=== PATIENT | female | born 1970 | race Caucasian/White ===

== ENCOUNTER 2023-10-08 19:58 | Inpatient (IN) ==
[2023-10-08 21:16] LABS: Albumin Globulin Ratio 0.9 (0.9-2); Albumin Level 3.7 gm/dl (3.4-5.0); BUN Creatinine Ratio 8.8 (10-20); Bilirubin,Total 0.5 mg/dl (0.2-1.0); Calcium 9.7 mg/dl (8.6-10.3); Creatinine Clr Calc Pharmacy 150.4 ml/min; Est GFR (African American) 122.7 ml/min; Est GFR (Non-African American) 105.8 ml/min; Globulin 3.9 gm/dl (2.5-4.0); Magnesium 1.7 mg/dl (1.7-2.4); Potassium 3.8 mmol/L (3.5-5.1); Total Protein 7.6 gm/dl (6.0-8.3)
[2023-10-08 21:19] LABS: Basophils # (auto) 0.07 K/uL (0.00-0.20); Basophils % (auto) 0.6 %; Eosinophils # (auto) 0.49 K/uL (0.00-0.50); Eosinophils % (auto) 4.3 %; Hematocrit (blood only) 43.1 % (37.0-47.0); Hemoglobin 14.3 g/dl (12.0-16.0); Immature Granulocytes % (auto) 0.9 %; Lymphocytes # (auto) 1.88 K/uL (1.20-3.40); Lymphocytes % (auto) 16.6 %; Mean Corpuscular Hemoglobin 28.9 pg (25.0-34.0); Mean Corpuscular Hgb Conc 33.2 g/dL (32.0-36.0); Mean Corpuscular Volume 87.1 fL (80.0-100.0); Mean Platelet Volume 10.6 fL (9.4-12.4); Monocytes # (auto) 0.87 K/uL (0.11-0.59); Monocytes % (auto) 7.7 %; Neutrophils # (auto) 7.92 K/uL (1.40-6.50); Neutrophils % (auto) 69.9 %; Platelet Count 209 K/uL (130-400); RDW Coefficient of Variation 12.8 % (11.5-14.5); RDW Standard Deviation 40.3 fL (36.4-46.3); Red Blood Count 4.95 M/uL (4.20-5.40); White Blood Count 11.33 K/ul (4.8-10.8)
[2023-10-08 21:21] LABS: INR 1.1 (0.9-1.1); Partial Thromboplastin Ratio 1.1; Partial Thromboplastin Time 29 Seconds (21-31); Prothrombin Time 12.1 Seconds (9.0-12.0)
[2023-10-08 21:29] LABS: Troponin I High Sensitivity 4.4 pg/ml (0-14)
--- NOTE | 2023-10-08 23:09 | Emergency Department Note ---
Impression & Plan Cellulitis and abscess of face, Chills, Body aches ED Provider Note CHIEF COMPLAINT: Abscess in the right side of the face HISTORY OF PRESENT ILLNESS: This 52-year-old female patient presents to the emergency department via private vehicle for evaluation of abscess in the right side of the face. The patient states that she noticed abscess 2 days ago. She states it has rapidly progressed and larger and more painful. She is now having pain extending behind her ear and down into her neck. The patient reports subjective fever and chills. She has had nausea and vomiting as well as body aches. The patient does report a history of abscesses on her face and head, but often they resolve on their own. Patient states she has been off of her diabetes medication for about 6 weeks because her doctor left and she did not want to follow-up with the other doctors in the office. She did not receive any refills of her prescriptions. She has not been checking her blood sugar. Patient states the wound on the face has been draining some purulent discharge. REVIEW OF SYSTEMS: A 10 system review of systems was performed with positives and pertinent negatives listed in the history of present illness. All other systems were reviewed and are negative. ALLERGIES: NKDA PHYSICAL EXAM: VITALS: Vitals are noted on the nurse's note and reviewed by myself. Vital signs stable. GENERAL: This is a 52 year old female, in no acute distress, nondiaphoretic, well-developed well-nourished. SKIN: The skin was without rashes, erythema, edema, or bruising. There is no tenting of the skin. Capillary refill less than 2 seconds. HEAD: Normocephalic atraumatic. Large abscess on the right side of the face overlying the right episcopalian lateral to the right eye. There is erythema that extends to the forehead as well as down into the cheek. EARS: External auditory canals clear, tympanic membranes pearly hurd without erythema or effusion bilaterally. No hemotympanum. Negative kern sign EYES: Pupils equal round and reactive to light and accommodation. Conjunctivae without injection, sclerae without icterus. Extraocular movements intact. NOSE: Patent, turbinates without inflammation or discharge. No sinus tenderness. MOUTH: Mucous membranes moist. Tonsils are not enlarged. Pharynx without erythema or exudate. Uvula midline. Airway patent. Tongue does not deviate. NECK: Supple without nuchal rigidity. No lymphadenopathy. Cervical spine is nontender. No JVD. HEART: Regular rate and rhythm without murmurs gallops or rubs. LUNGS: Clear to auscultation bilaterally without wheezes, rales or rhonchi. No retractions or accessory muscle use. MUSCULOSKELETAL: No muscle atrophy, erythema, or edema noted. Full range of motion without joint tenderness in all extremities. No tenderness to palpation. Normal gait. Strength 5/5 throughout. NEURO: Patient was alert and oriented to person place and time. No focal neurological deficits. An order was placed for continuous alarm security or surveillance monitor. The monitor showed a normal sinus rhythm at a ventricular rate of 96 bpm, per my interpretation. EKG was reviewed by myself and found to be normal sinus rhythm at a rate of 92 beats per minute and per my interpretation reveals no ST elevation or depression. No T wave version. No prior EKG available for comparison. Imaging as interpreted by myself and the radiologist revealed a [id number] abscess underlying the dermis of the right occipital scalp as well as marked fluid and edema of the subcutaneous fat with thickening of the dermis of the anterior right periauricular soft tissues without definitive evidence of organized fluid collection, a phlegmon is suspected, with radiologist interpretation as above. I agree with the radiologist's findings as based upon my independent interpretation. EMERGENCY DEPARTMENT COURSE: The patient was seen and evaluated as above. The patient presents to the emergency department for right-sided facial abscess. Patient reports increasing pain, subjective fever and chills. She has also had body aches. She has been off of all diabetes medications for almost 2 months, as her PCP left the practice and she has not followed back up. IV access was obtained, labs were drawn. There was a mild leukocytosis of 11.33. No anemia or thrombocytopenia. Coags normal. Renal, hepatic function and electrolytes without significant abnormality. Blood glucose is elevated at 328. Troponin 4.4. Procalcitonin 0.05. Lactic acid 1.5. Patient was hydrated with IV fluids and medicated with morphine, Zofran, and Unasyn. CT imaging was completed and concerning for a large abscess in the right occipital scalp as well as fluid and edema of the subcutaneous fat with thickening of the dermis of the anterior right periauricular soft tissues without definitive evidence of an organized fluid collection. Phlegmon is suspected. Lymph nodes of the neck are prominent in number but not size and are likely reactive. I discussed findings with patient at bedside. I am concerned for facial cellulitis and extensive/large facial abscess with phlegmon which I feel would be more amenable to I&D by a specialist. Recommended admission for IV antibiotics, diabetes control, and maxillofacial surgery consultation. The patient was agreeable. I discussed case with Dr[facility] Capone[facility]. He did agree to see and evaluate the patient for admission. Please see his dictation regarding ongoing management care of this patient. I did consult with Dr. Lofton at the request of Dr. Capone regarding his concern that he may or may not address the facial abscess. Dr. Lofton notes that he is happy to consult on this patient and will likely need to take her to the OR later in the week. He requested she be admitted by the medicine service and started on IV antibiotics. He notes he will see her later in the day today and asked that she remain n.p.o. until his consultation. Dr. Capone was updated on this consultation. While in the department, I personally reevaluated the patient several times and each time the patient was found to be resting comfortably. The patient was educated upon management, educated upon todays findings/results, educated upon importance of follow up from today's visit, educated upon symptoms in which to return, had questions answered prior to discharge, verbalized understanding, and was discharged home in good condition. Case was discussed with the attending physician. I attest that I have personally reviewed the patient medication list. I attest that I have reviewed the patient's blood pressure and it was found to be normal GCS: 15 In the evaluation and treatment of this patient the following differential diagnoses were entertained: cellulitis, abscess, MRSA infection, DVT, necrotizing fasciitis, dermatitis, drug eruption, allergic reaction, as well as other pathologies. The chart was completed utilizing [employer] Speech voice recognition software. Grammatical errors, random word insertions, pronoun errors, and incomplete sentences are an occasional consequence of this system due to software limitations, ambient noise, and hardware issues. Any formal questions or concerns about the content, text, or information contained within the body of this dictation should be directly addressed to the provider for clarification. Past Med/Surg History Problem List (Updated 10/09/23 @ 01:54 by Simran Escobar PA-C) Body aches (Acute) Chills (Acute) Cellulitis and abscess of face (Acute) Medical History No pertinent past medical history Social History Smoking Status: Former smoker Preferred Language: Tamazight Allergies Allergies Allergy/AdvReac Type Severity Reaction Status Date / Time meperidine [From Demerol] Allergy Severe SHORT OF Verified 10/08/23 23:27 BREATH sulfamethoxazole Allergy Severe SHORT OF Verified 10/08/23 23:27 [From Bactrim] BREATH/HIVES trimethoprim [From Bactrim] Allergy Severe SHORT OF Verified 10/08/23 23:27 BREATH/HIVES Home Meds Home Medications Medication Instructions Recorded Confirmed acetaminophen 500 mg tablet 1,000 mg PO Q6H PRN Pain 10/08/23 10/08/23 (Tylenol Extra Strength) naproxen sodium 220 mg tablet 440 mg PO DIRECTED PRN Pain 10/08/23 10/08/23 (Aleve) Results & Data (ED) Vital Signs Vital Signs - 24 hr 10/08/23 20:06 10/08/23 22:04 10/08/23 22:04 Temperature 36.7 C Temperature Source Oral Pulse Rate 96 H Pulse Rate [Finger] 96 H Pulse Rhythm Regular Pulse Strength Normal Respiratory Rate 20 20 Respiratory Effort / Characteristics Non-Labored Spontaneous Respiratory Depth Normal Respiratory Pattern Regular Blood Pressure 174/104 H Blood Pressure [Left Arm] 116/76 Blood Pressure Mean 127 Blood Pressure Mean [Left Arm] 89 Blood Pressure Position Sitting Pulse Oximetry 96 95 96 Oxygen Delivery Method Room Air Room Air Room Air Sepsis Recent Fever Within 48 Hours Yes Sepsis New/Unexplained Change in Mental Status N/A Sepsis Action Taken by Nursing No Action Required 10/08/23 23:57 10/09/23 01:24 Temperature 36.7 C Temperature Source Oral Pulse Rate Pulse Rate [Finger] 93 H 89 Pulse Rhythm Pulse Strength Respiratory Rate 20 20 Respiratory Effort / Characteristics Respiratory Depth Respiratory Pattern Blood Pressure Blood Pressure [Left Arm] Blood Pressure Mean Blood Pressure Mean [Left Arm] Blood Pressure Position Pulse Oximetry 95 94 Oxygen Delivery Method Room Air Room Air Sepsis Recent Fever Within 48 Hours Sepsis New/Unexplained Change in Mental Status Sepsis Action Taken by Nursing Laboratory Data 10/08/23 20:37 10/08/23 20:37 Lab Results 10/08/23 Range/Units 20:37 WBC 11.33 H (4.8-10.8) K/ul RBC 4.95 (4.20-5.40) M/uL Hgb 14.3 (12.0-16.0) g/dl Hct 43.1 (37.0-47.0) % MCV 87.1 (80.0-100.0) fL MCH 28.9 (25.0-34.0) pg MCHC 33.2 (32.0-36.0) g/dL RDW Std Deviation 40.3 (36.4-46.3) fL RDW Coeff of Faustino 12.8 (11.5-14.5) % Plt Count 209 (130-400) K/uL MPV 10.6 (9.4-12.4) fL Immature Gran % (Auto) 0.9 % Neut % (Auto) 69.9 % Lymph % (Auto) 16.6 % [place] % (Auto) 7.7 % Eos % (Auto) 4.3 % Baso % (Auto) 0.6 % Neut # (Auto) 7.92 H (1.40-6.50) K/uL Lymph # (Auto) 1.88 (1.20-3.40) K/uL [place] # (Auto) 0.87 H (0.11-0.59) K/uL Eos # (Auto) 0.49 (0.00-0.50) K/uL Baso # (Auto) 0.07 (0.00-0.20) K/uL Immature Gran # (Auto) 0.10 (0.01-0.20) K/uL PT 12.1 H (9.0-12.0) Seconds INR 1.1 (0.9-1.1) APTT 29 (21-31) Seconds PTT Ratio 1.1 Sodium 135 L (136-145) mmol/L Potassium 3.8 (3.5-5.1) mmol/L Chloride 102 (98-107) mmol/L Carbon Dioxide 27 (21-32) mmol/L Anion Gap 6 (3-11) BUN 5 L (6-23) mg/dl Creatinine 0.57 L (0.6-1.2) mg/dl Est Cr Clr Drug Dosing 150.4 ml/min Est GFR ( Amer) 122.7 ml/min Est GFR (Non-Af Amer) 105.8 ml/min BUN/Creatinine Ratio 8.8 L (10-20) Glucose 328 H* (70-99(Fasting)) mg/dl Lactate 1.5 (0.4-2.0) mmol/L Calcium 9.7 (8.6-10.3) mg/dl Magnesium 1.7 (1.7-2.4) mg/dl Total Bilirubin 0.5 (0.2-1.0) mg/dl AST 13 (13-39) U/L ALT 15 (7-52) U/L Alkaline Phosphatase 113 H (34-104) U/L Troponin I High Sens 4.4 (0-14) pg/ml Total Protein 7.6 (6.0-8.3) gm/dl Albumin 3.7 (3.4-5.0) gm/dl Globulin 3.9 (2.5-4.0) gm/dl Albumin/Globulin Ratio 0.9 (0.9-2) Procalcitonin 0.05 (0-0.5) ng/ml Administered Medications Discontinued Medications Sodium Chloride (Nss) 1,000 mls @ 999 mls/hr IV .Q1H1M ONE Stop: 10/09/23 00:01 Last Infusion: 10/09/23 00:12 Dose: Infused Documented By: Admin: 10/08/23 23:54 Dose: 999 mls/hr Documented By: DARIN Ampicillin Sodium/Sulbactam Sodium 3,000 mg/ Sodium Chloride 100 mls @ 200 mls/hr IV NOW STA Stop: 10/09/23 00:31 Last Infusion: 10/09/23 01:44 Dose: Infused Documented By: Admin: 10/09/23 01:23 Dose: 200 mls/hr Documented By: DARIN Ioversol (Optiray 320 100ml) 94 ml IV ONCE ONE Stop: 10/08/23 23:49 Last Admin: 10/08/23 23:48 Dose: 94 ml Documented By: GIDEON Morphine Sulfate (Morphine Sulfate 4 Mg/Ml 1 Ml Carp\Vial) 4 mg IV NOW STA Stop: 10/08/23 23:02 Last Admin: 10/08/23 23:54 Dose: 4 mg Documented By: DARIN Ondansetron HCl (Ondansetron Inj 2 Mg/Ml 2 Ml Vial) 4 mg IV NOW STA Stop: 10/08/23 23:02 Last Admin: 10/08/23 23:54 Dose: 4 mg Documented By: DARIN Imaging Data Radiologist's Impression: Soft Tissue Neck CT 10/08/23 22:58 Exam(s): CT NECK With Contrast IV Amt: 94 ML OPTIRAY 320 EXAM: CT Neck With Intravenous Contrast CLINICAL HISTORY: Abscess right side of face, Pain to neck. TECHNIQUE: Axial computed tomography images of the neck with intravenous contrast. CTDI is 22.4 mGy and DLP is 697 mGy-cm. Automated exposure control was utilized for the study. A dose lowering technique was utilized adhering to the principles of ALARA. CONTRAST: Patient received 94 ML OPTIRAY 320 of IV contrast COMPARISON: No relevant prior studies available. FINDINGS: Oropharynx: Unremarkable. No significant tonsillar enlargement. No peritonsillar abscess. Hypopharynx: Unremarkable. Larynx: Unremarkable. Normal epiglottis. Trachea: Unremarkable. Retropharyngeal space: Unremarkable. Submandibular/parotid glands: Unremarkable. Glands are normal in size. Thyroid: Unremarkable. No enlarged or calcified nodules. Bones/joints: There are degenerative changes of the spine. No acute fracture. Soft tissues: There is marked fluid and edema of the subcutaneous fat with thickening of the dermis of the right periauricular soft tissues without definitive evidence organized fluid collection however a phlegmon is suspected. There is a 19 x 9 x 11 mm abscess underlying the dermis of the right occipital scalp. Vasculature: No acute findings. Lymph nodes: The lymph nodes of the neck are prominent in number but not size. Lung apices: Unremarkable as visualized. IMPRESSION: 1. There is a 19 x 9 x 11 mm abscess underlying the dermis of the right occipital scalp. 2. There is marked fluid and edema of the subcutaneous fat with thickening of the dermis of the anterior right periauricular soft tissues without definitive evidence organized fluid collection however a phlegmon is suspected. 3. The lymph nodes of the neck are prominent in number but not size. These are likely reactive. Electronically signed by: Betty Leigh MD 10/09/23 01:44 AM Discharge Plan Visit Data Chief Complaint: Head Pain Stated Complaint: ABCESS ON HEAD, AND SIDE ED Provider: Blanco Harmon ED Midlevel Provider: Simran Escobar Discharge Problem: Cellulitis and abscess of face, Chills, Body aches Patient Disposition: Admitted As Inpatient Forms Stand Alone Forms: [facility] Prescriptions Prescriptions: No Action acetaminophen [Tylenol Extra Strength] 500 mg Tablet 1,000 mg PO Q6H PRN (Reason: Pain) naproxen sodium [Aleve] 220 mg Tablet 440 mg PO DIRECTED PRN (Reason: Pain) Referrals Referrals: PCP,NO [Primary Care Provider] -
[2023-10-08] MEDS: OPTIRAY 320 100ml IV ONE (23:48)
[2023-10-08] MEDS: SODIUM CHLORIDE 0.9% 1,000 ML IV ONE (23:54)
[2023-10-08] MEDS: ONDANSETRON INJ 2 MG/ML 2 ML VIAL IV STA (23:54)
[2023-10-08] MEDS: MoRPHine SULFATE 4 MG/ML 1 ML CARP\\VIAL IV STA (23:54)
[2023-10-09] MEDS: AMPICILLIN/SULBACTAM SOD 3,000 MG in SODIUM CHLOR 0.9% MINI-B 100 ML IV STA (01:23)
--- NOTE | 2023-10-09 01:40 | History & Physical Report ---
Date of Service October 09, 2023 Assessment & Plan (1) Scalp abscess: Plan: hypertension, elevated secondary to discomfort and medication noncompliance hyperlipidemia, currently not taking previous statin and fibrate medications DM2 previously on oral medications, marked hyperglycemia at the ER, unknown baseline control, patient previously on metformin, Farxiga, and Januvia as per outpatient records GERD, on home PPI previously past tobacco abuse GMF CS, Doxycycline and Zosyn OMFS consult re: scalp abscess (ED provider already in touch with Dr. Lofton who recommends n.p.o. status in anticipation of procedure.) Resume prior lisinopril Rx and home cholesterol medications Basal bolus insulin adjusted for n.p.o. status, ISS BG goal 1 10-1 40, check hemoglobin A1c DVT prophylaxis. SCDs Re: Purulent bloody scalp drainage Full code Text document was generated using [employer] voice recognition software. It may contain grammatical or spelling errors. Kindly contact undersigned for clarification of any documentation item in question. History of Present Illness Chief Complaint: Right face swelling Primary Care Provider: NO PCP [facility]. History obtained from patient and records. Medical history significant for hypertension, hyperlipidemia, DM2 previously on oral medications, GERD, past tobacco abuse. Few days ago, patient noticed painful bump right side of her face which progressively got worse. Patient admits to manipulation. Purulent bloody drainage as per patient. Fever, chills. Patient had nausea vomiting symptoms. Denies chest pain, SOB, abdominal pain. Patient consulted ER. IV Unasyn administered at the ER. Patient has not taken blood pressure, DM, and cholesterol medications for a few months now. Had problems with previous family doctor. Patient slated to establish care with [facility]. SBP 170s upon arrival at the ER. Medical History as above Surgical History : Hernia repair, hysterectomy, cholecystectomy Family History : Heart disease, DM Personal/Social history : Past tobacco abuse, no EtOH intake, applying for disability Allergies Allergy/AdvReac Type Severity Reaction Status Date / Time meperidine [From Demerol] Allergy Severe SHORT OF Verified 10/08/23 23:27 BREATH sulfamethoxazole Allergy Severe SHORT OF Verified 10/08/23 23:27 [From Bactrim] BREATH/HIVES trimethoprim [From Bactrim] Allergy Severe SHORT OF Verified 10/08/23 23:27 BREATH/HIVES Home Medications Medication Instructions Recorded Confirmed Type acetaminophen 500 mg tablet 1,000 mg PO Q6H PRN Pain 10/08/23 10/08/23 History (Tylenol Extra Strength) naproxen sodium 220 mg tablet 440 mg PO DIRECTED PRN Pain 10/08/23 10/08/23 History (Aleve) Past Med/Surg History Problem List (Updated 10/09/23 @ 05:26 by Terrell Capone MD) Scalp abscess Body aches (Acute) Chills (Acute) Cellulitis and abscess of face (Acute) Medical History No pertinent past medical history Social History Smoking Status: Former smoker Tobacco Type: Cigarettes Second Hand Exposure: No; Hx Alcohol Use: No Hx Substance Use: Yes Last Used Substance: Days (ago) Preferred Language: Hebrew Communication Ability: Effective Gang Pusher Required: No Beliefs That Will Affect Care: None Current Living Situation: Spouse Other Information That Helps Us Care for You: No Feels Safe at Home: Yes Safety Concerns: Feels Safe At This Time Assistive Devices: Denture - Upper, Denture - Lower and Glasses Assistive Devices Comment: not here Review of Systems Review of Systems: As per HPI, all other systems reviewed and negative Physical Exam Physical Exam: GENERAL: Pleasant, uncomfortable, morbidly obese, no respiratory distress SKIN: Normal color, warm HEENT: [place] palpebral conjunctivae, no ptosis, dry buccal mucosa; tender swelling right preauricular area with necrotic surface/edges NECK : Supple, short neck, no tenderness CHEST : CTA, no tenderness HEART : RRR, no obvious murmurs ABDOMEN: Some distention, nontender EXTREMITIES : No LE swelling/tenderness, no other conspicuous deformities noted NEUROLOGIC : Coherent, no facial asymmetry, no other gross focality Results & Data Results & Data Vital Signs (Past 12 Hours) Vital Signs Temp Pulse Pulse Resp BP BP Pulse Ox 10/09/23 01:24 36.7 C 89 20 94 10/08/23 23:57 93 H 20 95 10/08/23 22:04 96 10/08/23 22:04 96 H 20 116/76 95 10/08/23 20:06 36.7 C 96 H 20 174/104 H 96 O2 Del Method 10/09/23 01:24 Room Air 10/08/23 23:57 Room Air 10/08/23 22:04 Room Air 10/08/23 22:04 Room Air 10/08/23 20:06 Room Air Laboratory Results Laboratory Results WBC 11.33 K/ul (4.8-10.8) H 10/08/23 20:37 RBC 4.95 M/uL (4.20-5.40) 10/08/23 20:37 Hgb 14.3 g/dl (12.0-16.0) 10/08/23 20:37 Hct 43.1 % (37.0-47.0) 10/08/23 20:37 MCV 87.1 fL (80.0-100.0) 10/08/23 20:37 MCH 28.9 pg (25.0-34.0) 10/08/23 20:37 MCHC 33.2 g/dL (32.0-36.0) 10/08/23 20:37 RDW Std Deviation 40.3 fL (36.4-46.3) 10/08/23 20:37 RDW Coeff of Faustino 12.8 % (11.5-14.5) 10/08/23 20:37 Plt Count 209 K/uL (130-400) 10/08/23 20:37 MPV 10.6 fL (9.4-12.4) 10/08/23 20:37 Immature Gran % (Auto) 0.9 % 10/08/23 20:37 Neut % (Auto) 69.9 % 10/08/23 20:37 Lymph % (Auto) 16.6 % 10/08/23 20:37 [place] % (Auto) 7.7 % 10/08/23 20:37 Eos % (Auto) 4.3 % 10/08/23 20:37 Baso % (Auto) 0.6 % 10/08/23 20:37 Neut # (Auto) 7.92 K/uL (1.40-6.50) H 10/08/23 20:37 Lymph # (Auto) 1.88 K/uL (1.20-3.40) 10/08/23 20:37 [place] # (Auto) 0.87 K/uL (0.11-0.59) H 10/08/23 20:37 Eos # (Auto) 0.49 K/uL (0.00-0.50) 10/08/23 20:37 Baso # (Auto) 0.07 K/uL (0.00-0.20) 10/08/23 20:37 Immature Gran # (Auto) 0.10 K/uL (0.01-0.20) 10/08/23 20:37 PT 12.1 Seconds (9.0-12.0) H 10/08/23 20:37 INR 1.1 (0.9-1.1) 10/08/23 20:37 APTT 29 Seconds (21-31) 10/08/23 20:37 PTT Ratio 1.1 10/08/23 20:37 Sodium 135 mmol/L (136-145) L 10/08/23 20:37 Potassium 3.8 mmol/L (3.5-5.1) 10/08/23 20:37 Chloride 102 mmol/L (98-107) 10/08/23 20:37 Carbon Dioxide 27 mmol/L (21-32) 10/08/23 20:37 Anion Gap 6 (3-11) 10/08/23 20:37 BUN 5 mg/dl (6-23) L 10/08/23 20:37 Creatinine 0.57 mg/dl (0.6-1.2) L 10/08/23 20:37 Est Cr Clr Drug Dosing 150.4 ml/min 10/08/23 20:37 Est GFR ( Amer) 122.7 ml/min 10/08/23 20:37 Est GFR (Non-Af Amer) 105.8 ml/min 10/08/23 20:37 BUN/Creatinine Ratio 8.8 (10-20) L 10/08/23 20:37 Glucose 328 mg/dl (70-99(Fasting)) H* 10/08/23 20:37 Lactate 1.5 mmol/L (0.4-2.0) 10/08/23 20:37 Calcium 9.7 mg/dl (8.6-10.3) 10/08/23 20:37 Magnesium 1.7 mg/dl (1.7-2.4) 10/08/23 20:37 Total Bilirubin 0.5 mg/dl (0.2-1.0) 10/08/23 20:37 AST 13 U/L (13-39) 10/08/23 20:37 ALT 15 U/L (7-52) 10/08/23 20:37 Alkaline Phosphatase 113 U/L (34-104) H 10/08/23 20:37 Troponin I High Sens 4.4 pg/ml (0-14) 10/08/23 20:37 Total Protein 7.6 gm/dl (6.0-8.3) 10/08/23 20:37 Albumin 3.7 gm/dl (3.4-5.0) 10/08/23 20:37 Globulin 3.9 gm/dl (2.5-4.0) 10/08/23 20:37 Albumin/Globulin Ratio 0.9 (0.9-2) 10/08/23 20:37 Procalcitonin 0.05 ng/ml (0-0.5) 10/08/23 20:[address]: 1. There is a 19 x 9 x 11 mm abscess underlying the dermis of the right occipital scalp. 2. There is marked fluid and edema of the subcutaneous fat with thickening of the dermis of the anterior right periauricular soft tissues without definitive evidence organized fluid collection however a phlegmon is suspected. 3. The lymph nodes of the neck are prominent in number but not size. These are likely reactive. Diagnostic Findings EKG as per my interpretation : Rate 90, NSR, normal axis, T wave abnormalities inferior leads
--- NOTE | 2023-10-09 01:44 | CT Scan Report ---
Exam(s): CT NECK With Contrast IV Amt: 94 ML OPTIRAY 320 EXAM: CT Neck With Intravenous Contrast CLINICAL HISTORY: Abscess right side of face, Pain to neck. TECHNIQUE: Axial computed tomography images of the neck with intravenous contrast. CTDI is 22.4 mGy and DLP is 697 mGy-cm. Automated exposure control was utilized for the study. A dose lowering technique was utilized adhering to the principles of ALARA. CONTRAST: Patient received 94 ML OPTIRAY 320 of IV contrast COMPARISON: No relevant prior studies available. FINDINGS: Oropharynx: Unremarkable. No significant tonsillar enlargement. No peritonsillar abscess. Hypopharynx: Unremarkable. Larynx: Unremarkable. Normal epiglottis. Trachea: Unremarkable. Retropharyngeal space: Unremarkable. Submandibular/parotid glands: Unremarkable. Glands are normal in size. Thyroid: Unremarkable. No enlarged or calcified nodules. Bones/joints: There are degenerative changes of the spine. No acute fracture. Soft tissues: There is marked fluid and edema of the subcutaneous fat with thickening of the dermis of the right periauricular soft tissues without definitive evidence organized fluid collection however a phlegmon is suspected. There is a 19 x 9 x 11 mm abscess underlying the dermis of the right occipital scalp. Vasculature: No acute findings. Lymph nodes: The lymph nodes of the neck are prominent in number but not size. Lung apices: Unremarkable as visualized. IMPRESSION: 1. There is a 19 x 9 x 11 mm abscess underlying the dermis of the right occipital scalp. 2. There is marked fluid and edema of the subcutaneous fat with thickening of the dermis of the anterior right periauricular soft tissues without definitive evidence organized fluid collection however a phlegmon is suspected. 3. The lymph nodes of the neck are prominent in number but not size. These are likely reactive. Electronically signed by: Betty Leigh MD 10/09/23 01:44 AM
[2023-10-09] MEDS ORDERED: GLUCOSE 40% GEL 15 GM TUBE PO PRN (01:53)
[2023-10-09] MEDS ORDERED: GLUCOSE 10 TAB/TUBE PO PRN (01:53)
[2023-10-09] MEDS ORDERED: DEXTROSE 50% 50 ML SYRINGE IV PRN (01:53)
[2023-10-09] MEDS ORDERED: GLUCAGON FOR INJ 1 MG VIAL SQ PRN (01:53)
[2023-10-09] MEDS ORDERED: CARBOHYDRATES FOR HYPOGLYCEMIA PO PRN (01:53)
[2023-10-09] MEDS ORDERED: KETOROLAC TROMETHAMINE 15 MG/ML VIAL IV PRN (02:51)
[2023-10-09] MEDS: NSS + 20MEQ KCL 20 MEQ/1,000 ML BAG IV ONE (03:10)
[2023-10-09] MEDS: KETOROLAC TROMETHAMINE 15 MG/ML VIAL IV ONE (03:14)
[2023-10-09] MEDS: PIPERACILLIN/TAZOBACTAM 4.5 GM in DEXTROSE 5% MINI-B 100 ML IV ONE (03:15)
[2023-10-09] MEDS: LANTUS PER UNIT CHARGE SQ STA (03:25)
[2023-10-09] MEDS: INSULIN ASPART PER UNIT CHARGE SC SCH (03:26)
[2023-10-09] MEDS: DOXYCYCLINE HYCLATE 100 MG in DEXTROSE 5% MINI-B 100 ML IV STA (03:44)
[2023-10-09] MEDS: lisinopril 5 MG TAB PO SCH (06:06)
[2023-10-09] MEDS: PROMETHAZINE HCL 12.5 MG in SODIUM CHLORIDE 0.9% 50 ML IV PRN (06:29)
[2023-10-09] MEDS: oxyCODONE HCL IR 5 MG TAB (IMMEDIATE RELEASE) PO PRN (06:34)
[2023-10-09 06:36] LABS: BUN Creatinine Ratio 12.5 (10-20); Calcium 8.5 mg/dl (8.6-10.3); Creatinine Clr Calc Pharmacy 209.8 ml/min; Est GFR (African American) 137.8 ml/min; Est GFR (Non-African American) 118.9 ml/min; Potassium 3.3 mmol/L (3.5-5.1)
[2023-10-09 06:41] LABS: Basophils # (auto) 0.09 K/uL (0.00-0.20); Basophils % (auto) 0.9 %; Eosinophils % (auto) 5.9 %; Hematocrit (blood only) 39.6 % (37.0-47.0); Hemoglobin 13.1 g/dl (12.0-16.0); Lymphocytes # (auto) 2.46 K/uL (1.20-3.40); Lymphocytes % (auto) 24.3 %; Mean Corpuscular Hgb Conc 33.1 g/dL (32.0-36.0); Mean Corpuscular Volume 87.6 fL (80.0-100.0); Mean Platelet Volume 10.4 fL (9.4-12.4); Monocytes # (auto) 0.89 K/uL (0.11-0.59); Monocytes % (auto) 8.8 %; Neutrophils # (auto) 5.99 K/uL (1.40-6.50); Neutrophils % (auto) 59.1 %; Platelet Count 185 K/uL (130-400); RDW Coefficient of Variation 12.7 % (11.5-14.5); RDW Standard Deviation 40.5 fL (36.4-46.3); Red Blood Count 4.52 M/uL (4.20-5.40); White Blood Count 10.13 K/ul (4.8-10.8)
--- NOTE | 2023-10-09 06:50 | XRay Report ---
XR chest 1V not portable CLINICAL HISTORY: Sepsis TECHNIQUE: Single frontal radiograph of the chest was obtained. Comparison: None available at the time of this dictation. FINDINGS: No lines and tubes are seen. The cardiomediastinal silhouette is normal. The lungs are clear. No evid ence of pleural effusion or pneumothorax. IMPRESSION: No acute abnormalities and in particular no radiographic evidence of pneumonia. ACT 112: Negative or not required by law. Electronically signed by: Cem Thompson M.D. 10/09/2023 6:49 AM
[2023-10-09] MEDS: FENOFIBRATE NANOCRYSTALLIZED 145 MG TABLET PO SCH (07:52)
[2023-10-09] MEDS: PIPERACILLIN/TAZOBACTAM 4.5 GM in DEXTROSE 5% MINI-B 100 ML IV SCH (07:52)
[2023-10-09 08:10] LABS: Estimated Average Glucose 295 mg/dl; Hemoglobin A1C 11.9 % (4.5-5.6)
[2023-10-09] MEDS ORDERED: lisinopril 2.5 MG TAB PO SCH (09:00)
[2023-10-09] MEDS: MoRPHine SULFATE 4 MG/ML 1 ML CARP\\VIAL IV PRN (11:02)
[2023-10-09] MEDS ORDERED: VANCOMYCIN HCL 1,750 MG in SODIUM CHLORIDE 0.9% 500 ML IV SCH (14:00)
[2023-10-09] MEDS ORDERED: VANCOMYCIN CONSULT ACTIVE PRN (14:00)
[2023-10-09 14:43] LABS: Appearance Urine Clear (Clear); Bacteria Urine Automated None Seen (None Seen); Bilirubin Urine Negative (Negative); Blood Urine Negative (Negative); Cast Urine Automated 0-2 /lpf (0-2); Color Urine Yellow; Epithelial Cell Urine Auto 0-2 /hpf (0-2); Glucose Urine UA 1+ (Negative); Ketones Urine Negative (Negative); Leukocyte Esterase Urine 1+ (Negative); Nitrite Urine Positive (Negative); Protein Urine Negative (Negative); Urobilinogen Urine Negative (Negative); WBC Urine Automated 21-50 /hpf (0-5); pH Urine 5.5 (4.5-7.5)
--- NOTE | 2023-10-09 14:52 | Communication Note ---
Date of Service: October 09, 2023 Patient seen and examined Reports pain around facial and right post auricular swelling Reported fever at home which has resolved Reported she has been off all her meds for over 1 month and changing to a new PCP Discussed with Dr Lofton. He recommends controlling blood glucose better before possilbe I/D on Saturday or saturday Replete hypokalemia Diet ordered Counseled patient on need for proper glycemic control DM educator consult HbA1c 11.9. Will need insulin Other plans as in H/P this AM
[2023-10-09] MEDS ORDERED: PHARMACY GLYCEMIC MGMT CONSULT PRN (14:54)
[2023-10-09] MEDS: VANCOMYCIN HCL 2,500 MG in SODIUM CHLORIDE 0.9% 500 ML IV ONE (14:56)
[2023-10-09] MEDS: POTASSIUM CHLORIDE CRTAB 20 MEQ TABCR PO STA (14:57)
--- NOTE | 2023-10-09 15:13 | Pharmacy Report ---
Pharmacy Glycemic Short Note 2 - Date of Service October 09, 2023 - Glycemic Short BSG Results (Last 24 hours): 10/08/23 10/09/23 10/09/23 20:37 03:17 05:59 Glucose 328 H* 257 H POC Glucose 257 H 10/09/23 11:47 Glucose POC Glucose 248 H OUTPATIENT ANTIDIABETIC REGIMEN: * Metformin 1000 mg PO BIDM * Dapagliflozin 10 mg PO daily * Sitagliptin 50 mg PO daily HbA1c: 11.9% (10/09/23) ASSESSMENT: * MW is a 52 year old female who presents with scalp abscess - currently ordered broad spectrum IV antibiotic regimen * Blood sugars elevated thus far >200 mg/dL w/ elevated HbA1c * Pharmacy consulted this afternoon due to these elevated blood sugars * Will initiate basal at ~0.2 unit/kg/day and tighten to weight-based stress of 2 Novolog for now PLAN FOR INPATIENT GLYCEMIC CONTROL: * Hold outpatient oral diabetes medications * Basal insulin * Lantus 10 units SQ BID * Bolus insulin * NovoLog per scale ACHS or Q6hrs while NPO * Goal Range: Low 110 mg/dL - High 140 mg/dL * Correction Factor: 20 mg/dL/unit * Nutritional / Prandial insulin per carb ratio of 1 unit per 7 grams CHO consumed
[2023-10-09] MEDS: DAPTOmycin 350 MG in SYRINGE 0 ML IV SCH (20:46)
[2023-10-09] MEDS ORDERED: DOXYCYCLINE HYCLATE 100 MG CAP PO SCH (21:00)
[2023-10-09] MEDS ORDERED: SIMVASTATIN 20 MG TAB PO SCH (21:00)
--- NOTE | 2023-10-09 22:49 | Oral/Maxillofacial Consult ---
Date of Consultation October 09, 2023 I was asked to see Maria Elena in room 383 for an acute right preauricular and occipital infection. Maria Elena has no teeth so it is not from a dental infection. There is no parotid gland involvement as the infection is located superficially on the skin. This could represent an infected dermoid cyst or carbuncular lesion. Given her uncontrolled DM and high A1C this could also be associated with the lack of BC control. Maria Elena tells me that theses swelling should come and go --this makes me thick of a dermoid or skin infection. Nevertheless a wide incision and drainage of both infections is needed. We need to get control of the BS and raise the K slightly. Hopefully I can get the I&D done Saturday the OR. I reviewed the need for surgical intervention and reviewed the treatment plan. Maria Elena understands the need to control her DM and BS. Surgery is set for Saturday assuming she is cleared medically. I will see her Oct 09 and await medical clearance. She is now cleared for the I&D we will plan surgery Saturday PM Consent signed Wide I&D needed to address the infections EXAM: CT Neck With Intravenous Contrast CLINICAL HISTORY: Abscess right side of face, Pain to neck. FINDINGS: Oropharynx: Unremarkable. No significant tonsillar enlargement. No peritonsillar abscess. Hypopharynx: Unremarkable. Larynx: Unremarkable. Normal epiglottis. Trachea: Unremarkable. Retropharyngeal space: Unremarkable. Submandibular/parotid glands: Unremarkable. Glands are normal in size. Thyroid: Unremarkable. No enlarged or calcified nodules. Bones/joints: There are degenerative changes of the spine. No acute fracture. Vasculature: No acute findings. Lymph nodes: The lymph nodes of the neck are prominent in number but not size. Lung apices: Unremarkable as visualized. Soft tissues: There is marked fluid and edema of the subcutaneous fat with thickening of the dermis of the right periauricular soft tissues without definitive evidence organized fluid collection however a phlegmon is suspected. There is a 19 x 9 x 11 mm abscess underlying the dermis of the right occipital scalp. IMPRESSION: 1. There is a 19 x 9 x 11 mm abscess underlying the dermis of the right occipital scalp. 2. There is marked fluid and edema of the subcutaneous fat with thickening of the dermis of the anterior right periauricular soft tissues without definitive evidence organized fluid collection however a phlegmon is suspected. 3. The lymph nodes of the neck are prominent in number but not size. These are likely reactive. Assessment & Plan (1) Scalp abscess: (2) Cellulitis and abscess of face: (3) Poorly controlled diabetes mellitus: (4) Hypertension: History of Present Illness Attending Physician: Melissa Real MD Allergies Allergy/AdvReac Type Severity Reaction Status Date / Time meperidine [From Demerol] Allergy Severe SHORT OF Verified 10/08/23 23:27 BREATH sulfamethoxazole Allergy Severe SHORT OF Verified 10/08/23 23:27 [From Bactrim] BREATH/HIVES trimethoprim [From Bactrim] Allergy Severe SHORT OF Verified 10/08/23 23:27 BREATH/HIVES Home Medications Medication Instructions Recorded Confirmed Type acetaminophen 500 mg tablet 1,000 mg PO Q6H PRN Pain 10/08/23 10/08/23 History (Tylenol Extra Strength) naproxen sodium 220 mg tablet 440 mg PO DIRECTED PRN Pain 10/08/23 10/08/23 History (Aleve) albuterol sulfate 90 mcg/actuation 2 puff inhalation 10/09/23 History aerosol inhaler dapagliflozin propanediol 10 mg 10 mg PO DAILY 10/09/23 10/09/23 History tablet (Farxiga) fenofibrate nanocrystallized 145 145 mg PO DAILY 10/09/23 10/09/23 History mg tablet hydrochlorothiazide 25 mg tablet 25 mg PO DAILY 10/09/23 10/09/23 History lisinopril 2.5 mg tablet 2.5 mg PO DAILY 10/09/23 10/09/23 History metformin 1,000 mg tablet 1,000 mg PO BID 10/09/23 10/09/23 History sitagliptin phosphate 50 mg tablet 50 mg PO DAILY 10/09/23 10/09/23 History (Januvia) Patient History Medical History Diabetes mellitus, type 2 Social History Smoking Status: Former smoker Tobacco Type: Cigarettes Second Hand Exposure: No; Hx Alcohol Use: No Hx Substance Use: Yes Last Used Substance: Days (ago) Preferred Language: Turkmen Communication Ability: Effective Roof Tile Layer Required: No Beliefs That Will Affect Care: None Current Living Situation: Spouse Other Information That Helps Us Care for You: No Feels Safe at Home: Yes Safety Concerns: Feels Safe At This Time Assistive Devices: Denture - Upper, Denture - Lower and Glasses Assistive Devices Comment: not here Results & Data Vital Signs (Past 12 Hours) Vital Signs Temp Pulse Resp BP Pulse Ox O2 Del Method 10/09/23 19:51 36.5 C 82 16 131/77 92 Room Air 10/09/23 15:00 36.3 C L 83 16 115/76 93 Room Air PG Care Time/CCT Total # of Minutes Spent Total Time Spent with Patient: Total time spent is greater than 50% in coordination of care (as documented) at patient's floor/unit and/or counseling patient: Coding Level of Care Code 29743 IN/OBS CONSULT LVL 3,45M Diagnoses Scalp abscess L02.811 Cellulitis and abscess of face L03.211; L02.01 Poorly controlled diabetes mellitus E11.65 Hypertension I10
[2023-10-10] MEDS: ACETAMINOPHEN 325 MG TAB PO PRN (00:16)
--- NOTE | 2023-10-10 06:55 | Electrocardiogram Report ---
Test Reason : Blood Pressure : / mmHG Vent. Rate : 092 BPM Atrial Rate : 092 BPM P-R Int : 132 ms QRS Dur : 072 ms QT Int : 342 ms P-R-T Axes : 028 018 013 degrees QTc Int : 422 ms Normal sinus rhythm Cannot rule out Anterior infarct , age undetermined Abnormal ECG No previous ECGs available Confirmed by Harjit Ramirez ([id number]) on 10/10/2023 6:54:56 AM Referred By: REFERRED SELF Confirmed By:Harjit Ramirez
[2023-10-10 07:08] LABS: Hemoglobin 13.4 g/dl (12.0-16.0); Mean Corpuscular Hemoglobin 29.5 pg (25.0-34.0); Mean Corpuscular Hgb Conc 33.5 g/dL (32.0-36.0); Mean Corpuscular Volume 88.1 fL (80.0-100.0); Mean Platelet Volume 10.4 fL (9.4-12.4); Platelet Count 209 K/uL (130-400); RDW Coefficient of Variation 12.8 % (11.5-14.5); RDW Standard Deviation 41.2 fL (36.4-46.3); Red Blood Count 4.54 M/uL (4.20-5.40); White Blood Count 7.42 K/ul (4.8-10.8)
[2023-10-10 07:29] LABS: BUN Creatinine Ratio 11.3 (10-20); Calcium 8.8 mg/dl (8.6-10.3); Creatinine Clr Calc Pharmacy 135.3 ml/min; Est GFR (African American) 119.3 ml/min; Est GFR (Non-African American) 102.9 ml/min; Magnesium 1.6 mg/dl (1.7-2.4); Phosphorus 4.5 mg/dl (2.5-4.9); Potassium 3.8 mmol/L (3.5-5.1)
[2023-10-10] MEDS ORDERED: LANTUS PER UNIT CHARGE SQ SCH ×3 (09:00)
[2023-10-10] MEDS: MAGNESIUM OXIDE 400 MG TAB PO SCH (09:14)
[2023-10-10] MEDS: LANTUS PER UNIT CHARGE SQ SCH ×2 (09:18→20:51)
--- NOTE | 2023-10-10 09:54 | Pharmacy Report ---
Pharmacy Glycemic Short Note 2 - Date of Service October 10, 2023 - Glycemic Short BSG Results (Last 24 hours): 10/09/23 10/09/23 10/09/23 11:47 16:39 20:23 Glucose POC Glucose 248 H 205 H 255 H 10/10/23 10/10/23 06:17 07:54 Glucose 226 H POC Glucose 235 H OUTPATIENT ANTIDIABETIC REGIMEN: * Metformin 1000 mg PO BIDM * Dapagliflozin 10 mg PO daily * Sitagliptin 50 mg PO daily HbA1c: 11.9% (10/09/23) ASSESSMENT: 10/10/23: * Blood sugars elevated yesterday (205-257 mg/dL) * Insufficient insulin regimen yesterday, will tighten Novolog parameters * Received 35 units of insulin (10 units of basal and 25 units of bolus) * Fasting blood sugar of 235 mg/dL - will increase basal today 10/09/23: * MW is a 52 year old female who presents with scalp abscess - currently ordered broad spectrum IV antibiotic regimen * Blood sugars elevated thus far >200 mg/dL w/ elevated HbA1c * Pharmacy consulted this afternoon due to these elevated blood sugars * Will initiate basal at ~0.2 unit/kg/day and tighten to weight-based stress of 2 Novolog for now PLAN FOR INPATIENT GLYCEMIC CONTROL: * Hold outpatient oral diabetes medications * Basal insulin * Lantus 30 units SC daily * Lantus 0-10-20 units SC HS (see EHR for details) * Bolus insulin * NovoLog per scale ACHS or Q6hrs while NPO * Goal Range: Low 110 mg/dL - High 140 mg/dL * Correction Factor: 15 mg/dL/unit * Nutritional / Prandial insulin per carb ratio of 1 unit per 5 grams CHO consumed
--- NOTE | 2023-10-10 11:28 | Hospitalist Progress Note ---
Date of Service October 10, 2023 Assessment & Plan (1) Scalp abscess: (2) Poorly controlled diabetes mellitus: (3) Hypertension: Plan 52 year old woman with history of hypertension, DM2 on oral antidiabetics, HLD who presents with right facial swelling Soft Tissue CT noted 19 x 9 x 11mm abscess underlying dermis of right occipital scalp, marked fluid and edema of dermis of anterior periauricular soft issue Poorly controlled DM. HbA1c of 11.9 Patient reported she has been off all her meds for over a month as she switched to a new PCP Continue Vanc and Zosyn MRSA is +ve Dr Lofton evaluation noted Patient planned for OR tomorrow for I&D. Keep NPO PMN Continue insulin to optimize glycemic control Provided diabetes education DM educator on board Hold home oral antidiabetics Replete hypomagnesemia Monitor electrolytes and replete Continue fenofibrate DVT prophylaxis: Hold pharm agent in view of procedure. Ambulate Full code I spent a total of 50 minutes coordinating, documenting and providing care for this patient excluding time spent in performance of separately billed services Admission and Anticipated Discharge Date Admission Date: October 09, 2023 Subjective Patient seen and examined Reports right facial pain and swelling. Denied any cough, SOB, chest pain Reported one episode of nausea and vomiting this morning that have resolved Denied abd pain, diarrhea, dysuria, freq, urgency, fever, chills Physical Exam Constitutional: + well hydrated; no acute distress Eyes: PERRL, conjunctivae normal, anicteric sclerae ENMT: Tender swelling anterior to right ear Also has a smaller swelling in right occipital area Respiratory: normal respiratory effort, lungs clear to auscultation Cardiovascular: Rate/Rhythm: regular rate and regular rhythm Gastrointestinal (Abdomen): normal bowel sounds, soft, nontender, no hepatosplenomegaly Musculoskeletal: No pedal edema Neurologic: PERRL, EOMI, accommodation nl, no face palsy, no dysarthria Psychiatric: A+Ox3, euthymic affect Results & Data Results & Data Vital Signs (Past 12 Hours) Vital Signs Temp Pulse Resp BP Pulse Ox O2 Del Method 10/10/23 10:39 Room Air 10/10/23 07:22 36.7 C 79 18 110/71 95 Room Air Laboratory Results Abnormal lab results 10/09/23 10/09/23 10/09/23 Range/Units 14:00 16:39 20:23 Glucose (70-99(Fasting)) mg/dl POC Glucose 205 H 255 H (70-99) mg/dl Magnesium (1.7-2.4) mg/dl Urine Glucose (UA) 1+ H (Negative) Urine Nitrite Positive A (Negative) Ur Leukocyte Esterase 1+ H (Negative) Urine WBC (Auto) 21-50 H (0-5) /hpf Urine RBC (Auto) 3-5 H (0-2) /hpf Nasal Screen MRSA (PCR) Positive A (Negative) 10/10/23 10/10/23 10/10/23 Range/Units 06:17 07:54 11:28 Glucose 226 H (70-99(Fasting)) mg/dl POC Glucose 235 H 258 H (70-99) mg/dl Magnesium 1.6 L (1.7-2.4) mg/dl Urine Glucose (UA) (Negative) Urine Nitrite (Negative) Ur Leukocyte Esterase (Negative) Urine WBC (Auto) (0-5) /hpf Urine RBC (Auto) (0-2) /hpf Nasal Screen MRSA (PCR) (Negative)
[2023-10-10] MEDS: LORazepam 0.5 MG TAB PO PRN (20:50)
[2023-10-11 07:49] LABS: Hematocrit (blood only) 39.3 % (37.0-47.0); Hemoglobin 13.1 g/dl (12.0-16.0); Mean Corpuscular Hemoglobin 29.2 pg (25.0-34.0); Mean Corpuscular Hgb Conc 33.3 g/dL (32.0-36.0); Mean Corpuscular Volume 87.7 fL (80.0-100.0); Platelet Count 214 K/uL (130-400); RDW Coefficient of Variation 12.8 % (11.5-14.5); RDW Standard Deviation 41.1 fL (36.4-46.3); Red Blood Count 4.48 M/uL (4.20-5.40); White Blood Count 6.56 K/ul (4.8-10.8)
[2023-10-11 08:06] LABS: BUN Creatinine Ratio 16.7 (10-20); Calcium 9.3 mg/dl (8.6-10.3); Creatinine Clr Calc Pharmacy 116.5 ml/min; Est GFR (African American) 110.8 ml/min; Est GFR (Non-African American) 95.6 ml/min; Magnesium 1.7 mg/dl (1.7-2.4); Phosphorus 4.8 mg/dl (2.5-4.9)
[2023-10-11] MEDS: LANTUS PER UNIT CHARGE SQ ONE (08:16)
--- NOTE | 2023-10-11 10:36 | Anesthesiology Consultation ---
Date of Service October 11, 2023 Assessment & Plan Chart Review Chart Review: Acceptable Risk for Surgery and Patient NOT seen in Pre Admission Testing History Surgery Operation Date: 10/11/23 15:40 Proposed Procedures p Right Facial Occipital Region Incision and Drainage - Pavan Lofton DMD Height/Weight Height: 5 ft 6 in Weight: 115.3 kg Allergies Allergy/AdvReac Type Severity Reaction Status Date / Time meperidine [From Demerol] Allergy Severe SHORT OF Verified 10/08/23 23:27 BREATH sulfamethoxazole Allergy Severe SHORT OF Verified 10/08/23 23:27 [From Bactrim] BREATH/HIVES trimethoprim [From Bactrim] Allergy Severe SHORT OF Verified 10/08/23 23:27 BREATH/HIVES Medications Home Medications Medication Instructions Recorded Confirmed Last Taken acetaminophen 500 mg tablet 1,000 mg PO Q6H PRN Pain 10/08/23 10/08/23 Unknown (Tylenol Extra Strength) naproxen sodium 220 mg tablet 440 mg PO DIRECTED PRN Pain 10/08/23 10/08/23 10/08/23 14:00 (Aleve) albuterol sulfate 90 mcg/actuation 2 puff inhalation 10/09/23 08/10/23 aerosol inhaler dapagliflozin propanediol 10 mg 10 mg PO DAILY 10/09/23 10/09/23 Unknown tablet (Farxiga) fenofibrate nanocrystallized 145 145 mg PO DAILY 10/09/23 10/09/23 Unknown mg tablet hydrochlorothiazide 25 mg tablet 25 mg PO DAILY 10/09/23 10/09/23 Unknown lisinopril 2.5 mg tablet 2.5 mg PO DAILY 10/09/23 10/09/23 Unknown metformin 1,000 mg tablet 1,000 mg PO BID 10/09/23 10/09/23 Unknown sitagliptin phosphate 50 mg tablet 50 mg PO DAILY 10/09/23 10/09/23 Unknown (Januvia) Active Medications Generic Name Dose Route Start Last Admin Trade Name Freq PRN Reason Stop Dose Admin Acetaminophen 650 mg 10/09/23 02:51 10/10/23 00:16 Acetaminophen 325 Mg Tab PO 11/08/23 02:50 650 mg QID PRN Administration pain/fever Fenofibrate 145 mg 10/09/23 09:00 10/11/23 08:07 Fenofibrate Nanocrystallized 145 Mg Tablet PO 11/08/23 08:59 145 mg QAM KYLIE Administration Promethazine HCl 12.5 mg/ 50.5 mls @ 202 mls/hr 10/09/23 02:51 10/10/23 10:00 Sodium Chloride IV 11/08/23 02:50 Infused Q6H PRN Infusion Nausea And Vomiting Piperacillin Sod/Tazobactam 100 mls @ 25 mls/hr 10/09/23 08:00 10/11/23 08:08 Sod 4.5 gm/ Dextrose IV 10/16/23 07:59 25 mls/hr Q8H KYLIE Administration Protocol Daptomycin 350 mg/ Syringe 7 mls @ 3.5 mls/min 10/09/23 21:00 10/10/23 20:50 IV 10/16/23 20:59 3.5 mls/min Q24H KYLIE Administration Protocol Insulin Aspart 0 units 10/09/23 01:55 10/11/23 08:16 Insulin Aspart Per Unit Charge SC 11/08/23 01:54 5 units ACHS KYLIE Administration Insulin Glargine 0 units 10/10/23 21:00 10/10/23 20:51 Lantus Per Unit Charge SQ 11/09/23 20:59 Not Given HS KYLIE Protocol Lisinopril 5 mg 10/09/23 05:30 10/11/23 08:06 Lisinopril 5 Mg Tab PO 11/08/23 05:29 5 mg QAM KYLIE Administration Lorazepam 0.5 mg 10/09/23 02:51 10/10/23 20:50 Lorazepam 0.5 Mg Tab PO 11/08/23 02:50 0.5 mg TID PRN Administration Anxiety Magnesium Oxide 400 mg 10/10/23 09:00 10/11/23 08:06 Magnesium Oxide 400 Mg Tab PO 11/09/23 08:59 400 mg QAM KYLIE Administration Morphine Sulfate 4 mg 10/09/23 05:32 10/09/23 11:02 Morphine Sulfate 4 Mg/Ml 1 Ml Carp\Vial IV 10/23/23 05:31 4 mg Q4H PRN Administration Pain Oxycodone HCl 5 - 10 mg 10/09/23 02:51 10/11/23 08:17 Oxycodone Hcl Ir 5 Mg Tab (Immediate Release) PO 10/23/23 02:50 5 mg QID PRN Administration Pain Past Medical History Medical History Diabetes mellitus, type 2 Social History Smoking Status: Former smoker Hx Alcohol Use: No Hx Substance Use: Yes substance use type: marijuana Last Used Substance: Days (ago) Physical Exam Vital Signs Last Vital Signs Temp 36.5 C 10/11/23 07:23 Pulse 81 10/11/23 07:23 Resp 16 10/11/23 07:23 BP 118/78 10/11/23 07:23 Pulse Ox 92 10/11/23 07:23 O2 Del Method Room Air 10/11/23 07:23 Testing Laboratory Results 10/11/23 07:23 10/11/23 07:23 PT 12.1 Seconds (9.0-12.0) H 10/08/23 20:37 INR 1.1 (0.9-1.1) 10/08/23 20:37 APTT 29 Seconds (21-31) 10/08/23 20:37 Hemoglobin A1c 11.9 % (4.5-5.6) H 10/09/23 05:59 Urine Color Yellow 10/09/23 14:00 Urine Appearance Clear (Clear) 10/09/23 14:00 Urine pH 5.5 (4.5-7.5) 10/09/23 14:00 Ur Specific [place] 1.020 (1.000-1.030) 10/09/23 14:00 Urine Protein Negative (Negative) 10/09/23 14:00 Urine Glucose (UA) 1+ (Negative) H 10/09/23 14:00 Urine Ketones Negative (Negative) 10/09/23 14:00 Urine Nitrite Positive (Negative) A 10/09/23 14:00 Ur Leukocyte Esterase 1+ (Negative) H 10/09/23 14:00 Urine WBC (Auto) 21-50 /hpf (0-5) H 10/09/23 14:00 Urine RBC (Auto) 3-5 /hpf (0-2) H 10/09/23 14:00 U Hyaline Cast (Auto) 0-2 /lpf (0-2) 10/09/23 14:00 U Epithel Cells (Auto) 0-2 /hpf (0-2) 10/09/23 14:00 Urine Bacteria (Auto) None Seen (None Seen) 10/09/23 14:00 10/08/23 22:55 Gram Stain - Final Face Aerobic and Anaerobic Culture - Preliminary Staph aureus MRSA 10/09/23 00:34 Aerobic Blood Culture - Preliminary Blood No growth in Aerobic bottle after 48 hours. Anaerobic Blood Culture - Preliminary No growth in Anaerobic bottle after 48 hours. 10/08/23 20:37 Aerobic Blood Culture - Preliminary Blood No growth in Aerobic bottle after 48 hours. Anaerobic Blood Culture - Preliminary No growth in Anaerobic bottle after 48 hours. 10/09/23 14:00 Urine Culture - Preliminary Urine,Clean Catch No growth - Less than 1,000 colonies/mL, Final report to follow. 10/11/23 07:19 POC Glucose 205 H
--- NOTE | 2023-10-11 12:12 | Hospitalist Progress Note ---
Date of Service October 11, 2023 Assessment & Plan (1) Scalp abscess: (2) Poorly controlled diabetes mellitus: (3) Hypertension: Plan 52 year old woman with history of hypertension, DM2 on oral antidiabetics, HLD who presents with right facial swelling Soft Tissue CT noted 19 x 9 x 11mm abscess underlying dermis of right occipital scalp, marked fluid and edema of dermis of anterior periauricular soft issue Poorly controlled DM. HbA1c of 11.9 Patient reported she has been off all her meds for over a month as she switched to a new PCP Continue Vanc and Zosyn MRSA is +ve Dr Lofton planning I&D today Will followup procedure Continue insulin to optimize glycemic control Provided diabetes education DM educator on board Hold home oral antidiabetics Plan to dc on once daily lantus and Januvia or farxiga. Stop metformin for now Continue fenofibrate DVT prophylaxis: Hold pharm agent in view of procedure. Ambulate Full code I spent a total of 40 minutes coordinating, documenting and providing care for this patient excluding time spent in performance of separately billed services Admission and Anticipated Discharge Date Admission Date: October 09, 2023 Subjective Patient seen and examined Reports right facial pain and swelling. Reports intermittent nausea Denied any cough, SOB, chest pain Denied abd pain, diarrhea, dysuria, freq, urgency, fever, chills Physical Exam Constitutional: + well hydrated; no acute distress Eyes: PERRL, conjunctivae normal, anicteric sclerae ENMT: Tender swelling anterior to right ear Also has a swelling in right occipital area Respiratory: normal respiratory effort, lungs clear to auscultation Cardiovascular: Rate/Rhythm: regular rate and regular rhythm Gastrointestinal (Abdomen): normal bowel sounds, soft, nontender, no hepatosplenomegaly Musculoskeletal: No pedal edema Neurologic: PERRL, EOMI, accommodation nl, no face palsy, no dysarthria Psychiatric: A+Ox3, euthymic affect Results & Data Results & Data Vital Signs (Past 12 Hours) Vital Signs Temp Pulse Resp BP Pulse Ox O2 Del Method 10/11/23 07:23 36.5 C 81 16 118/78 92 Room Air Laboratory Results Abnormal lab results 10/10/23 10/10/23 10/11/23 Range/Units 16:40 20:29 07:19 Glucose (70-99(Fasting)) mg/dl POC Glucose 167 H 193 H 205 H (70-99) mg/dl 10/11/23 10/11/23 10/11/23 Range/Units 07:23 11:26 15:18 Glucose 224 H (70-99(Fasting)) mg/dl POC Glucose 208 H 177 H (70-99) mg/dl
[2023-10-11] MEDS: ONDANSETRON INJ 2 MG/ML 2 ML VIAL IV PRN ×2 (14:41→18:50)
[2023-10-11] MEDS ORDERED: HYDROmorphone INJ 2 MG/ML SYR/VIAL IV PRN (16:10)
[2023-10-11] MEDS ORDERED: NALOXONE HCL 0.4 MG/1 ML VIAL/CARP IV PRN (16:10)
[2023-10-11] MEDS ORDERED: METOCLOPRAMIDE HCL INJ 5 MG/ML 2 ML VIAL IV PRN (16:10)
[2023-10-11] MEDS ORDERED: ePHEDrine sulfate 50 MG/ML AMP IV PRN (16:10)
[2023-10-11] MEDS ORDERED: ATROPINE SULFATE 0.1 MG/ML 10ML SYR IV PRN (16:10)
[2023-10-11] MEDS ORDERED: fentaNYL citrate PF 100 MCG/2 ML VIAL IV PRN (16:11)
--- NOTE | 2023-10-11 16:57 | History & Physical Bridge Note ---
Date of Service October 11, 2023 History & Physical Bridge Note I have examined the patient, reviewed the History & Physical and in the interval since the performance of the History & Physical I have noted the following changes of clinical significance: no changes noted OK for the planned I&D right face and posterior neck near the mastoid area
[2023-10-11] MEDS ORDERED: fentaNYL citrate PF 100 MCG/2 ML VIAL ONE (17:07)
[2023-10-11] MEDS ORDERED: ONDANSETRON INJ 2 MG/ML 2 ML VIAL ONE (17:07)
[2023-10-11] MEDS ORDERED: LIDOCAINE 2% 2 ML VIAL/AMP(20MG/ML) INFIL ONE (17:07)
[2023-10-11] MEDS ORDERED: PROPOFOL IV EMULSION 10 MG/ML 20 ML VIAL IV ONE ×2 (17:07→18:11)
[2023-10-11] MEDS ORDERED: ROCURONIUM BROMIDE 10 MG/ML 5 ML VIAL IV ONE (17:07)
[2023-10-11] MEDS ORDERED: PHENYLEPHRINE 100MCG/ML 10ML SYR IV ONE (17:47)
[2023-10-11] MEDS ORDERED: ESMOLOL HCL INJ 10 MG/ML 10ML VIAL IV ONE (18:06)
[2023-10-11] MEDS ORDERED: SUGAMMADEX SODIUM 200 MG/2 ML VIAL IV ONE (18:08)
[2023-10-11] MEDS: BUPIVACAINE/EPINEPHRINE 0.5% MPF 1:200,000 30 ML VIAL ONE (18:11)
--- NOTE | 2023-10-11 18:25 | Post Operative Brief Note ---
PG Immediate Post Op with CF Date of Surgery October 11, 2023 Pre & Post Diagnosis Operation Date: 10/11/23 15:40 Pre-Op Diagnosis: Right facial abscess and right lateral neck abscess Post-Op Diagnosis: Right facial abscess and right lateral neck abscess I identified the patient and participated in the time-out.: Yes Procedure Operation Date: 10/11/23 15:40 Actual Procedures p Right Facial Occipital Region Incision and Drainage(Right) - Pavan Lofton, [place] Surgeon Pavan Lofton, [place] Supervisor Bonding none Estimated Blood Loss 5 Findings Consistent with Post-Op Diagnosis abscessed facial and lateral neck area right side Specimens Specimen Description: Microbiology 1. Right auricular (face) culture Drains [place] Drain Anesthesia Type General Complications none Disposition Accompanied Patient To Recovery: Yes
--- NOTE | 2023-10-11 21:52 | Anesthesiology Progress Note ---
Date of Service October 11, 2023 Anesthesia Post Procedure Vital Signs Vital Signs: Temp Pulse Pulse Resp BP Pulse Ox O2 Del Method 10/11/23 21:05 36.8 C 16 122/68 93 Room Air 10/11/23 20:09 36.7 C 85 18 92 Nasal Cannula 10/11/23 19:36 36.7 C 89 18 128/69 92 Nasal Cannula 10/11/23 19:06 36.6 C 97 H 18 148/80 H 96 Nasal Cannula 10/11/23 18:55 36.2 C L 86 13 155/93 H 96 Nasal Cannula 10/11/23 18:45 98 H 13 155/96 H 97 Nasal Cannula 10/11/23 18:35 100 H 16 141/86 H 98 Nasal Cannula 10/11/23 18:28 36.1 C L 118 H 23 137/100 92 Nasal Cannula 10/11/23 15:00 36.6 C 87 20 143/98 H 96 Room Air 10/11/23 07:23 36.5 C 81 16 118/78 92 Room Air O2 Flow Rate 10/11/23 21:05 10/11/23 20:09 2 10/11/23 19:36 2 10/11/23 19:06 2 10/11/23 18:55 2 10/11/23 18:45 2 10/11/23 18:35 2 10/11/23 18:28 2 10/11/23 15:00 10/11/23 07:23 Pain Intensity Right Head: Pain Intensity: 0 Transfer of Care Handoff Completed per policy Notes Mental Status: alert / awake / arousable Patient Amnestic to Procedure: Yes Nausea / Vomiting: adequately controlled Pain: adequately controlled Airway Patency, RR, SpO2: stable & adequate BP & HR: stable & adequate Hydration State: stable & adequate Anesthetic Complications: no major complications apparent
[2023-10-12 06:20] LABS: Hematocrit (blood only) 39.3 % (37.0-47.0); Mean Corpuscular Hemoglobin 29.3 pg (25.0-34.0); Mean Corpuscular Hgb Conc 33.1 g/dL (32.0-36.0); Mean Corpuscular Volume 88.5 fL (80.0-100.0); Platelet Count 228 K/uL (130-400); RDW Coefficient of Variation 12.7 % (11.5-14.5); RDW Standard Deviation 41.4 fL (36.4-46.3); Red Blood Count 4.44 M/uL (4.20-5.40); White Blood Count 8.09 K/ul (4.8-10.8)
[2023-10-12 06:46] LABS: BUN Creatinine Ratio 16.9 (10-20); Calcium 9.1 mg/dl (8.6-10.3); Creatinine Clr Calc Pharmacy 129.1 ml/min; Est GFR (African American) 117.5 ml/min; Est GFR (Non-African American) 101.4 ml/min; Potassium 3.9 mmol/L (3.5-5.1)
[2023-10-12 07:17] VITALS: RESP 17
[2023-10-12] MEDS: LANTUS PER UNIT CHARGE SQ ONE (08:51)
[2023-10-12 10:57] VITALS: BP 113/75; TEMP 97.7; O2SAT 95
--- NOTE | 2023-10-12 11:28 | Oral/Maxillofacial Progress Nt ---
Date of Service October 12, 2023 Assessment & Plan Admission and Anticipated Discharge Date Admission Date: October 09, 2023 Subjective Post Op infection evaluation 24 hours The infected area face and neck are responding well to the I&D Swelling is less as is her pain Slight drainage is noted, [place] functioning well Drain to be removed in my office on Oct 14 at 4 pm Cultures were reviewed. Infection has responded very well to the antibiotics and the I and D. I requested that the patient continue with massage, heat and wound care. At this time the area is well healed and responded well to treatment OK for discharge as per medicine RTC for drain removal on October 14 at 4pm. Results & Data Vital Signs (Past 12 Hours) Vital Signs Temp Pulse Pulse Resp BP Pulse Ox O2 Del Method 10/12/23 10:56 36.5 C 86 17 113/75 95 Room Air 10/12/23 07:17 36.3 C L 76 17 104/72 91 Room Air 10/12/23 04:14 36.9 C 84 16 108/84 92 Room Air PG Care Time/CCT Total # of Minutes Spent Total Time Spent with Patient: Total time spent is greater than 50% in coordination of care (as documented) at patient's floor/unit and/or counseling patient: Coding Level of Care Code None
--- NOTE | 2023-10-12 12:52 | Discharge Summary ---
Date of Service October 12, 2023 Admission HPI Per Admitting Provider History obtained from patient and records. Medical history significant for hypertension, hyperlipidemia, DM2 previously on oral medications, GERD, past tobacco abuse. Few days ago, patient noticed painful bump right side of her face which progressively got worse. Patient admits to manipulation. Purulent bloody drainage as per patient. Fever, chills. Patient had nausea vomiting symptoms. Denies chest pain, SOB, abdominal pain. Patient consulted ER. IV Unasyn administered at the ER. Patient has not taken blood pressure, DM, and cholesterol medications for a few months now. Had problems with previous family doctor. Patient slated to establish care with [facility]. SBP 170s upon arrival at the ER. Medical History as above Surgical History : Hernia repair, hysterectomy, cholecystectomy Family History : Heart disease, DM Personal/Social history : Past tobacco abuse, no EtOH intake, applying for disability Admission Exam Per Admitting Provider GENERAL: Pleasant, uncomfortable, morbidly obese, no respiratory distress SKIN: Normal color, warm HEENT: [place] palpebral conjunctivae, no ptosis, dry buccal mucosa; tender swelling right preauricular area with necrotic surface/edges NECK : Supple, short neck, no tenderness CHEST : CTA, no tenderness HEART : RRR, no obvious murmurs ABDOMEN: Some distention, nontender EXTREMITIES : No LE swelling/tenderness, no other conspicuous deformities noted NEUROLOGIC : Coherent, no facial asymmetry, no other gross focality Principal Diagnosis Facial/Scalp abscess S/P Incision and drainage Poorly controlled Diabetes mellitus Discharge Exam Constitutional + well hydrated; no acute distress Eyes PERRL, conjunctivae normal, anicteric sclerae ENMT Dressing over right face anterior to right ear as well as right occipital region Respiratory normal respiratory effort, lungs clear to auscultation Cardiovascular Rate/Rhythm: regular rate and regular rhythm Gastrointestinal (Abdomen) normal bowel sounds, soft, nontender, no hepatosplenomegaly Musculoskeletal no cyanosis or clubbing, extremities motor strength 5/5 Neurologic PERRL, EOMI, accommodation nl, no face palsy, no dysarthria Psychiatric A+Ox3, euthymic affect Discharge Data Allergies Allergy/AdvReac Type Severity Reaction Status Date / Time meperidine [From Demerol] Allergy Severe SHORT OF Verified 10/08/23 23:27 BREATH sulfamethoxazole Allergy Severe SHORT OF Verified 10/08/23 23:27 [From Bactrim] BREATH/HIVES trimethoprim [From Bactrim] Allergy Severe SHORT OF Verified 10/08/23 23:27 BREATH/HIVES Consultations 10/09/23 01:36 ED Decision to Admit Stat 10/09/23 02:49 Consult Oromaxillofacial Surgery Routine Procedures Performed Operation Date: 10/11/23 15:40 Actual Procedures p Right Facial Occipital Region Incision and Drainage(Right) - Pavan Lofton, DMD Ordered Studies 10/08/23 22:58 CT soft tissue neck w con Stat Hospital Course (1) Scalp abscess: (2) Poorly controlled diabetes mellitus: (3) Hypertension: Plan 52 year old woman with history of hypertension, DM2 on oral antidiabetics, HLD who presents with right facial swelling Soft Tissue CT noted 19 x 9 x 11mm abscess underlying dermis of right occipital scalp, marked fluid and edema of dermis of anterior periauricular soft issue Poorly controlled DM. HbA1c of 11.9 Patient reported she has been off all her meds for over a month as she switched to a new PCP Was managed with IV Vanc and Zosyn in the hospital MRSA is +ve Oromaxillofacial surgeon performed I&D on 10/11/23 Discussed with surgeon today who recommends patient to go home and follow up with his office on 10/15/23 Patient discharged on Augmentin and doxycycline to complete treatment Patient was provided DM education DM educator also provided more education as well as insulin education She was started on insulin She was discharged on Lantus 15U QAM and to continue januvia which she stated she takes in the evening Patient told to not take metformin or farxiga for now She is to keep home blood glucose log for PCP to aid with medication adjustments. Continue fenofibrate Patient has been off all meds for over a month as above. Hence all meds indicated were prescribed She reports she has an appt with a new PCP (adrienne Garcia) on 10/17/23. Advised to keep appt Total Time Total Time Spent Total Time Spent (In Minutes): 45 Total Time Includes: Examination of the Patient, Discharge Planning, Medication Reconciliation and Communication With Other Providers Discharge Plan Discharge Items Patient Disposition: Home - Self-Care Reason For Visit: SCALP ABSCESS Discharge Diagnosis: Facial/Scalp abscess S/P Incision and drainage Poorly controlled Diabetes mellitus Condition on Discharge: Good Activity: Resume your previous activity Lifting: Gradually increase as tolerated Bathing: No limitations and Keep incision dry Exercise/Sports: Gradually increase as tolerated Driving/Machine Use: Resume 3 days after discharge Weightbearing: Full weightbearing Non-emergency contact: Surgeon Call non-emergency contact if: you have any medication questions, your symptoms worsen, your temperature is above 101.5, your wound has increased redness, your wound has increased drainage and your wound pain has increased Follow-up/Referrals: Pavan Lofton, DMD [Physician] - PCP,NO [Primary Care Provider] - Diet: Regular Addtl Attending Provider Instructions: Mrs Masterson You were admitted to the hospital and managed for the above diagnoses. You had incision and drainage by Surgeon. You are being discharged on Antibiotics to complete treatment. You were also started on insulin glargine in the morning. Continue your januvia in the evening. No Metformin or Farxiga for now. Keep a log of your home blood glucose measurement for your Primary Doctor. Please ensure you keep your Primary Doctor's appointment you reported you already scheduled for 10/17/23 Refer to Surgeon's instruction below. It was a pleasure taking care of you. Addtl Auditing Clerk Provider Instructions: SURGEON'S INSTRUCTIONS: ADDITIONAL ACTIVITY RECOMMENDATIONS: * it is very important to keep well hydrated, this prevents fever SPECIAL CARE INSTRUCTIONS: *It is not uncommon that between day 2-4 that your swelling will be at its worst this is very normal, do not be alarmed. * Keep ice on the side of your face for the next 24 to 36 hours. This will help keep the swelling down. * Some swelling is common. It should gradually decrease within 4-5 days. * A certain amount of bleeding is to be expected. It is often possible to control mild oozing by placing folded gauze over the area with pressure for 30 minutes. If you are unable to control excessive bleeding, call Dr Lofton at [phone] * You may experience some discomfort for a few days. If pain or swelling increases, Call Dr Lofton * Return to the office for a follow up check up and drain removal SaturdayOctober 14 at 4 pm * office address--[id number] phone # [phone] Pending Studies at Discharge: No Stand-Alone Forms: My [facility] [email or web address], Smoking Cessation Medications and DC Order Prescriptions: New magnesium oxide 400 mg (241.3 mg magnesium) Tablet 400 mg PO QAM Qty: 30 0RF amoxicillin-pot clavulanate 875-125 mg tablet 1 tab PO BID Qty: 14 0RF doxycycline hyclate 100 mg tablet 100 mg PO BID 7 Days Qty: 14 0RF insulin glargine [Lantus Solostar U-100 Insulin] 100 unit/mL (3 mL) insulin pen 15 unit subcut QAM Qty: 15 0RF (DME) pen needle, diabetic 32 gauge x 5/16" needle See Rx Instructions .Route Qty: 100 0RF Rx Instructions: As directed. Use once a day (DME) blood-glucose meter [OneTouch Ultra2 Meter] Misc See Rx Instructions .Route Qty: 1 0RF Rx Instructions: As directed. Check 3x a day (DME) OneTouch Ultra Test Strip See Rx Instructions .Route Qty: 100 0RF Rx Instructions: As directed.Check 3x a day (DME) lancets [OneTouch Delica Plus Lancet] 33 gauge misc See Rx Instructions .Route Qty: 100 0RF Rx Instructions: As directed. Check 3x a day Continued albuterol sulfate 90 mcg/actuation HFA aerosol inhaler 2 puff INHALATION hydrochlorothiazide 25 mg tablet 25 mg PO DAILY Qty: 30 0RF lisinopril 2.5 mg tablet 2.5 mg PO DAILY Qty: 30 0RF fenofibrate nanocrystallized 145 mg tablet 145 mg PO DAILY 30 Days Qty: 30 0RF Januvia 50 mg tablet 50 mg PO DAILY Qty: 30 0RF Changed acetaminophen [Tylenol Extra Strength] 500 mg Tablet 1,000 mg PO TID PRN (Reason: Pain) Qty: 60 0RF Discontinued naproxen sodium [Aleve] 220 mg Tablet 440 mg PO DIRECTED PRN (Reason: Pain) metformin 1,000 mg tablet 1,000 mg PO BID dapagliflozin propanediol [Farxiga] 10 mg tablet 10 mg PO DAILY Discharge Orders: Discharge Order (Routine); Ordered 10/12/23 Ordered By: Melissa Phoenix/Other Patient Handouts: ED Abscess, Incision And Drainage Admission Data Admit Date/Time: 10/09/23 02:47 Attending Provider: Melissa Real I. Admit Provider: Terrell Capone Primary Care Provider: PCP,NO Other Providers: Terrell Capone; Pavan Lofton Other Interventions: Discharge Summary Assessment (RN) Last Done: 10/12/23 13:56
[2023-10-12 14:03] VITALS: PULSE 84
[2023-10-12] MEDS ORDERED: LANTUS PER UNIT CHARGE SQ ONE (16:30)
[2023-10-13] MEDS ORDERED: LANTUS PER UNIT CHARGE SQ SCH (09:00)
--- NOTE | 2023-10-20 20:03 | Operative Report ---
PG Post Operative Report Pre & Post Diagnosis Operation Date: 10/11/23 15:40 Pre-Op Diagnosis: Right facial abscess Lateral posterior superior neck abscess Post-Op Diagnosis: Right facial abscess Lateral posterior superior neck abscess I identified the patient and participated in the time-out.: Yes Procedure Operation Date: 10/11/23 15:40 Actual Procedures p Right Facial and Occipital Region -Lateral posterior superior neck abscess Incision and Drainage(Right) - Pavan Lofton DMD Surgeon Pavan Lofton DMD Condenser Cleaner none Estimated Blood Loss 5 Findings Consistent with Post-Op Diagnosis Specimens I&D right facial abscess Drains Richard 03/14 face and neck Anesthesia Type General Complications none Disposition Accompanied Patient To Recovery: Yes Indications acute facial infection suspect MRSA Description of Procedure p Incision and Drainage - Pavan Lofton DMD ICD 10 L02.01, L02.11 and L03.211 CPT 83371 I & D of Deep subcutaneous abscess of the Right Facial 86834 I & D of Lateral posterior superior neck abscess (Right) Once cleared for surgery general anesthesia was achieved, the eyes were protected by the anesthesia dept criteria. A time out was take for patient ID, antibiotics, equipment and position verifi cation once all agreed the procedure began. Local anesthesia using Marcaine with a vasoconstrictor ( 1.8 ml per site) given The facial area and neck were cleaned with Betadine Once a surgical level of anesthesia was obtained and the local anesthesia was given time for the blocks the surgery was started. I turned my attention to the infection which was located in the in the right lateral preauricular area then once this was completed the Lateral posterior superior neck abscess (Right) Once cleared for surgery general anesthesia was achieved, the eyes were protect ed by the anesthesia dept criteria. A time out was take for patient ID, antibiotics, equipment and position verification once all agreed the procedure began. Local anesthesia using Marcaine with a vasoconstrictor ( 1.8 ml per site) given The facial area and neck were cleaned with Betadine Once a surgical level of anesthesia was obtained and the local anesthesia was given time for the blocks the surgery was started. I turned my attention to the infection which was located in the in the right lateral preauricular area then Lateral posterior superior neck abscess (Right) Incision and Drainage I&D Preauricular abscess ICD 10 L03.211 CPT 72230 I & D of Deep subcutaneous abscess of the Right Facial Using a 15 blade an incision was made in the right lateral preauricular area then once this was completed the Lateral posterior superior neck abscess (Right) Once the incision was made a lot of pus extruded from the site. This drainage was cultured for anaerobic and aerobic bacteria. A curved hemostat was carefully placed superior into the infected space to drain the preauricular space. To gain access to the pocket of pus in the cheek another incision was made, this allowed further drainage to escape. I palpated the face and cheek area and no further drainage was expressed. The area was irrigated with at least 100 ml of NS solution. I now placed a small 1/4 inch Crowell drain into the preauricular space and sutured the drain in place with a few 3-0 chromics. I&D Lateral posterior superior neck abscess ICD 10 L02.01, L02.11 CPT 01243 I & D of Lateral posterior superior neck abscess (Right) We now turned Maria Elena on to her left side to allow me to gain access to the Lateral posterior superior neck abscess (Right). Using a 15 blade an incision was made in the lateral posterior neck abscess -right. Once the incision was made a lot of pus and blood clot extruded from the site. This drainage was cultured for anaerobic and aerobic bacteria. A curved hemostat was carefully placed superior into the infected space . I palpated the neck and no further drainage was expressed. The area was irrigated with at least 100 ml of NS solution. I now placed a small 1/4 inch Richard drain into the lateral neck space and sutured the drain in place with a few 3-0 chromics. I inspected the sites to insure all bleeding was controlled. A gauze pressure dressings was placed over each of the I&D sites All instrument and sponge count was correct. The patient was allowed to awake from the anesthesia. Once full awake the anesthesia tube was removed and the patient was taken to the recovery room with all vital sign stable. The patient tolerated the surgery very well. I will follow the patient in my office, Rx and instructions will be given upon discharge. Maria Elena will be followed in my office in a few days for drain removal. I attest to the content of the Intraoperative Record and any orders documented therein. Any exceptions are noted below.
== END 2023-10-12 14:52 | disposition home or self-care (01) | DRG 603 ==
LOC: ED 19:58 → 3N 10-09 02:47